=== PATIENT | male | born 1950 | race Caucasian/White ===

== ENCOUNTER 2022-11-01 19:17 | Emergency (ER) | payer OTHER ==
[~2022-11-01] VITALS: Ht 185.4 cm; Wt 86.2 kg
[2022-11-01] MEDS ORDERED: HYDR-4060 PO (22:13)
[2022-11-01] MEDS ORDERED: CYCL10TA16 PO (22:13)
[2022-11-01 22:17] VITALS: BP 138/85
== END 2022-11-01 22:25 | disposition home or self-care (01) ==
LOC: EDH 19:17
DX: S39.012A Strain of muscle, fascia and tendon of lower back, initial encounter (principal); I10 Essential (primary) hypertension; E78.00 Pure hypercholesterolemia, unspecified; Z90.89 Acquired absence of other organs; X58.XXXA Exposure to other specified factors, initial encounter; Y93.53 Activity, golf; Y92.89 Other specified places as the place of occurrence of the external cause; Y99.8 Other external cause status

== ENCOUNTER → 2024-05-15 | Outpatient (CLI) | payer OTHER ==
[~2024-05-15] MED LIST: CYCL10TA16 PO; HYDR-4060 PO
== END | disposition home or self-care (01) ==
LOC: RAH 13:43
PROVIDERS: ATTEND Family Medicine
DX: M79.661 Pain in right lower leg (principal); M79.662 Pain in left lower leg
CPT/HCPCS: 93970